=== PATIENT | male | born 1970 | race Caucasian/White ===

== ENCOUNTER 2016-08-27 18:38 | Observation (INO) ==
--- NOTE | 2016-08-27 19:59 | Emergency Department Note ---
Disposition Clinical Impression: Ankle fracture, Ankle sprain and strain, Glioblastoma, Ataxia Disposition: Admitted As Inpatient Condition: Fair Referrals: NO,PCP [Primary Care Provider] - Forms: ED Satisfaction Letter Lower Extremity Injury HPI - General Chief Complaint: ED Extremity Injury, Lower Stated Complaint: left ankle injury Time Seen by Provider: 08/27/16 19:32 Source: patient Mode of arrival: ambulatory Limitations: no limitations Nursing Notes Reviewed: Yes Vital Signs Reviewed: Yes - History of Present Illness HPI Narrative: Baljit Moreno 45 yo M presents with c/o b/l ankle pain/ Pt states that Right ankle pain started a few days ago, has been a constant throbbing pain that has caused him difficulty and weakness with walking since onset. He states this weakness with walking caused him to stumble and invert his left ankle earlier today which is now causing him a throbbing pain and weakness on the left side as well. Pt states that he is now unable to stand up and walk by himself and he has been requiring assistance from his family to get around. Pt denies fever, chills, N/V/D/C, CP or SOB, denies numbness/tingling, loss of sensation. Pt Subjective Complaint: ankle injury Injury location: Left ankle Onset (ago): day(s) Mechanism of Injury: inversion Context: walking Place: home Pain Severity: moderate Pain Scale: 6 Improves with: immobilization Worsens with: weight bearing, movement, palpation Associated symptoms: Reports: unable to bear weight, swelling, weakness - Related Data Home Medications Medication Instructions Recorded Confirmed Sulfamethoxazole/Trimeth DS 1 tab PO MOWEFR 04/24/16 08/27/16 [Bactrim Ds] Temozolomide [Temodar] 300 mg PO DAILY 04/24/16 08/12/16 Veliparib 20 mg PO DAILY 08/27/16 Previous Rx's Medication Instructions Recorded Prochlorperazine Maleate 10 mg PO Q6HR PRN #60 tablet 12/04/15 [Compazine] Acyclovir [Zovirax] 400 mg PO DAILY #30 tablet 12/26/15 Apixaban [Eliquis] 5 mg PO BID #60 tablet 05/08/16 Docusate [Colace] 200 mg PO HS #60 capsule 05/08/16 Mirtazapine [Remeron] 15 mg PO HS #30 tablet 05/08/16 Omeprazole 20 mg PO DAILY #30 tablet. 07/05/16 ClonazePAM [Klonopin] 1 mg PO BID #60 tablet 08/12/16 Allergies Allergy/AdvReac Type Severity Reaction Status Date / Time No Known Allergies Allergy Verified 08/12/16 11:29 Past Medical History - Past Medical History Medical history: Reports: cancer, DVT, GERD Surgical history: Reports: IVC Filter, other (Right parietal craniotomy for glioblastoma) Psychiatric history: Reports: anxiety, depression - Social History Smoking Status: Never smoker Smokeless Tobacco Status: No Alcohol use: Reports: none Drug use: Reports: none Physical Exam - General Limitations: no limitations General appearance: alert - Head Head exam: atraumatic, normocephalic, normal inspection - Eye Eye exam: Present: normal appearance, PERRL, EOMI - ENT ENT exam: normal exam, normal oropharynx, mucous membranes moist - Neck Neck exam: Present: normal inspection, full ROM, trachea midline - Chest Chest inspection: Present: normal inspection, symmetric chest wall rise - Respiratory Respiratory exam: Present: normal lung sounds bilaterally - Cardiovascular Cardiovascular exam: Present: regular rate, normal rhythm, normal heart sounds - Abdominal Exam Abdominal exam: Present: soft, Non-Tender. Absent: tenderness, distention, guarding, rebound, rigidity - Rectal Exam Rectal exam: Present: deferred - Extremities Exam Extremities exam: Present: tenderness (b/l lateral malleoli), joint swelling, other (dorsiflexion b/l 5/5; plantar flexion 4/5L 3/5R). Absent: calf tenderness - Expanded Lower Extremity Exam Ankle exam: Present: full ROM, tenderness, swelling, erythema (R>L), tenderness over talofibular lig (Left side). Absent: anterior draw sign Foot/toe exam: Present: full ROM, erythema Neurovascular/Tendon exam: Present: normal capillary refill. Absent: foot drop Gait: not tested/not observed - Back Exam Back exam: Present: normal inspection, full ROM. Absent: tenderness - Neurological Exam Neurological exam: Present: alert, oriented X3 - Psychiatric Psychiatric exam: Present: normal affect, normal mood - Skin Skin exam: Present: warm, dry, intact Course Vital Signs Temperature 0 F L 08/27/16 18:43 Pulse Rate 89 08/27/16 18:43 Respiratory Rate 16 08/27/16 18:43 Blood Pressure 125/84 08/27/16 18:43 O2 Sat by Pulse Oximetry 93 08/27/16 18:43 Temperature 0 F L 08/27/16 18:43 Pulse Rate 89 08/27/16 18:43 Respiratory Rate 16 08/27/16 18:43 Blood Pressure 125/84 08/27/16 18:43 O2 Sat by Pulse Oximetry 93 08/27/16 18:43 Oxygen Delivery Oxygen Delivery Room Air Extremity Injury, Lower - MDM Narrative Medical decision making narrative: The patient has bilateral ankle fractures and is completely unable to bear weight at this time. He has chronic gait disturbance and glioblastoma. Based on his family's inability to care for him at home, it may be appropriate to admit the patient hospital for PT/OT and or inpatient rehabilitation consult. The patient may require skilled nursing and the family and patient are comfortable with this plan. I have discussed the case with the hospitalist on-call who has accepted the patient to their care. - Differential Diagnosis Likely: sprain/strain, fracture, dislocation - Radiology Data Radiology results reviewed: Yes I reviewed the patient's radiology results.
--- NOTE | 2016-08-27 21:34 | Emergency Department Note ---
START Narrative - START START: The patient has a history of chronic gait abnormality secondary to his glioblastoma. He appears to have significant ankle strain or fracture of both ankles. The family reports the patient is unable to bear any weight at home. They do not feel like they can take care of him at the house. Based on the patient's chronic gait debility and what appear to be new associated ankle fractures bilaterally, I thought it would be appropriate to admit the patient to the hospital. I will consult with the hospitalist on-call, perhaps OT, PT and rehabilitation consultation be obtained for inpatient rehabilitation and/or retirement placement. The family and patient are agreeable to retirement placement or rehabilitation inpatient. I evaluated exam the patient with the resident and agree with her findings assessment and plan. I spent direct [id number] time with the patient. Impression: Gait instability Glioblastoma Bilateral ankle fractures Unable to bear weight's or walk secondary to acute ankle injuries
--- NOTE | 2016-08-27 23:51 | Internal Med History&Physical ---
<Cong Boothe - Last Filed: 08/28/16 01:09> Date of Encounter: 08/28/16 Time of Encounter: 23:20 Assessment and Plan (1) Ambulatory dysfunction Current visit: Yes Status: Acute - Patient reports unable to walk today. - Likely secondary to bilateral ankle pain in the setting of residual left lower extremity weakness. - Will have PT & OT to evaluate and treat. - Given patient's family doesn't feel safe and capable to take care of patient at this time, will consult social service and appreciate assistance regarding placement. (2) Ankle fracture Current visit: Yes Status: Acute - Ankle X-ray found possible nondisplaced distal right fibular fracture. - Given patient's residual weakness of left lower extremity and inability to ambulate at this time, will consult orthopedic surgery and appreciate recommendations. Qualifiers: Encounter type: initial encounter Fracture type: closed Laterality: right Qualified Code(s): S82.891A - Other fracture of right lower leg, initial encounter for closed fracture (3) Glioblastoma Current visit: Yes Status: Chronic - S/p right parietal craniotomy. - Currently on chemotherapy with last dose on 08/14/16. (4) History of pulmonary embolus (PE) Current visit: Yes Status: Chronic - Continue Eliquis. (5) Depression with anxiety Current visit: No Status: Chronic - Continue Remeron. Internal Medicine - H&P: HPI Chief complaint: Inability to ambulate Admitted From: Emergency Dept Plans for Post Hospital Care: Home History of present illness: Mr. Chávez is a 45 year old male with PMH of giloblastoma s/p right parietal craniotomy with residual left-sided weakness, on chemotherapy with last one on and history of PE, currently on Eliquis. Patient presented with complaint of inability to walk with ankle pain and weakness. Patient is a poor historian. Patient reports having right lateral ankle when he woke up on 08/26 and denies any known recent trauma or injury. Patient had his left ankle inverted accidentally today and reports unable to walk after. Patient states the left ankle weakness is about the same as before. Patient denies numbness/ tingling or other new focal weakness. Patient reports no significant ankle pain at this time. Per patient's family, they don't feel safe and capable to take care of patient at home given he cannot ambulate at this time. Past Med Surg Social Fam HX - Past Medical History Medical history: cancer (Giloblastoma), DVT, GERD Psychiatric history: anxiety, depression - Past Surgical History Surgical History: IVC Filter, other (Right parietal craniotomy) - Social History Smoking Status: Never smoker Smokeless Tobacco Status: No Alcohol use: none Drug use: none - Family History Mother History Unknown: Yes Adopted: [place]: Dara Yeh Age: 70 Family Member Ethnicity: Non- Living Status: Still Living Hx Family Cardiac Disorders: Yes (rapid heart rate) Hx Family Respiratory Disorders: No Hx Family Cancer: No Hx Family GI Disorders: No Hx Family Genitourinary Disorders: No Hx Family Endocrine Disorder: No Hx Family Musculoskeletal Disorders: No Hx Family Neuromuscular Disorders: No Hx Family Neurologic Disorders: No Hx Family HEENT Disorders: No Hx Family Autoimmune Disorders: No Hx Family Reproductive Disorders: No Hx Family Psychosocial Disorders: No Hx Family Medical Disorders: No Father Hx Family Neurologic Disorders: Yes (Stroke) Internal Medicine - H&P: Meds Prochlorperazine Maleate [Compazine] 10 mg PO Q6HR PRN #60 tablet 12/04/15 [Rx] Acyclovir [Zovirax] 400 mg PO DAILY #30 tablet 12/26/15 [Rx] Sulfamethoxazole/Trimeth DS [Bactrim Ds] 1 tab PO MOWEFR 04/24/16 [History] Temozolomide [Temodar] 300 mg PO DAILY 04/24/16 [History] Apixaban [Eliquis] 5 mg PO BID #60 tablet 05/08/16 [Rx] Docusate [Colace] 200 mg PO HS #60 capsule 05/08/16 [Rx] Mirtazapine [Remeron] 15 mg PO HS #30 tablet 05/08/16 [Rx] Omeprazole 20 mg PO DAILY #30 tablet. 07/05/16 [Rx] ClonazePAM [Klonopin] 1 mg PO BID #60 tablet 08/12/16 [Rx] Veliparib 20 mg PO DAILY 08/27/16 [History] Allergies No Known Allergies Allergy (Verified 08/12/16 11:29) All Systems PM: A 10-system review of systems was performed and is negative for pertinent findings except as documented above in the HPI. - Constitutional Constitutional: no anorexia, no fever(s), no weight loss - EENT Eyes: no change in vision Ears: no decreased hearing Nose, mouth and throat: no dysphagia, no odynophagia - Cardiovascular Cardiovascular ROS IM: no chest pain, no lightheadedness, no syncope - Respiratory Respiratory: no cough, no dyspnea, no hemoptysis - Gastrointestinal Gastrointestinal: no abdominal pain, no hematochezia, no melena, no nausea, no vomiting - Genitourinary Genitourinary ROS male: no difficulty urinating, no dysuria, no hematuria - Musculoskeletal Musculoskeletal ROS IM: arthralgias (Bilateral ankle pain), no myalgias - Integumentary Integumentary IM: no pruritus, no rash - Neurological Neurological ROS: no focal weakness, no numbness, no tingling - Hematologic/Lymphatic Hematologic/Lymphatic: no easy bleeding, no easy bruising - Constitutional Vitals: Temp Pulse Resp BP Pulse Ox 98.3 F 94 17 139/99 96 08/27/16 22:42 08/27/16 22:42 08/27/16 22:42 08/27/16 22:42 08/27/16 22:42 General appearance: Present: cooperative, A&O X 3, no acute distress - Head Head exam: Present: atraumatic, normocephalic - Eye Eye exam: Present: PERRL, conjuntiva pink, sclera anicteric - Neck Neck exam general surgery: Present: supple, trachea midline. Absent: lymphadenopathy - Respiratory Respiratory exam: Present: CTAB. Absent: accessory muscle use, rales, rhonchi, wheezes - Cardiovascular Cardiovascular exam: Present: RRR, +S1, +S2. Absent: diastolic murmur, gallop, rubs, systolic murmur - GI/Abdominal GI/Abdominal exam: Present: normal bowel sounds, soft, no peritoneal signs. Absent: distended, tenderness - Extremities Exam Extremities exam: Present: warm, radial pulses palpable and symetrical. Absent : calf tenderness, cyanotic Additional comments: Tenderness to palpation and some swelling at lateral malleolus of right ankle noted. - Neurological Exam Neurological exam: Present: CN II-XII intact, oriented X3. Absent: pronater drift, facial droop, speech deficit Additional comments: Left upper and lower extremity weakness, per patient, this is his baseline. - Skin Skin exam: Present: dry, intact <David,Lionel Herman - Last Filed: 08/28/16 05:56> Date of Encounter: 08/27/16 Internal Medicine - H&P: HPI History of present illness: Mr. Chávez is a 45 year old male admitted to the [facility] emergency department when he presented with complaints of bilateral ankle pain. The patient's history is significant for glioblastoma status post right parietal craniotomy with residual left hemiparesis. Patient acknowledges difficulty with ambulation and subsequently stumbled and inverted his ankle the morning of presentation. Due to pain and weakness incurred he was unable to stand and walk by himself and required assistance from family to mobilize. Upon presenting to the emergency department studies revealed evidence for bilateral ankle strain injuries with associated soft tissue swelling. Also noted was a possible nondisplaced distal right fibular/lateral malleolar fracture. Mild widening of the lateral ankle mortise was demonstrated indicative of ligamentous injury. It was suggested at presentation that patient 's current debility exceeds the ability of family members to assist him and care for him in the home setting. The patient was visited and interviewed and examined. I examined this patient and my medical decision-making was reviewed with the Resident Physician, Dr. Cong Boothe. For this encounter, I have reviewed the documentation, treatment plan, and medical decision making. I agree with the documented findings, disposition and treatment plan as described except to the extent set forth below. Given the patient's presenting concerns, past medical history, clinical findings and symptoms, he is admitted at this time to undergo further evaluation and disposition. All Systems PM: A 10-system review of systems was performed and is negative for pertinent findings except as documented above in the HPI. - Constitutional Vitals: Temp Pulse Resp BP Pulse Ox 98.4 F 84 16 126/85 94 08/28/16 04:59 08/28/16 04:59 08/28/16 04:59 08/28/16 04:59 08/28/16 04:59 Vital Signs Temp Pulse Resp BP Pulse Ox 08/28/16 04:59 98.4 F 84 16 126/85 94 08/27/16 22:42 98.3 F 94 17 139/99 96 08/27/16 22:16 16 136/107 08/27/16 18:43 0 F L 89 16 125/84 93 Intake and Output 08/27/16 08/27/16 08/28/16 15:59 23:59 07:59 Output Total 300 / 300 Balance -300 / -300 Output: Urine 300 / 300 Other: Weight 90.718 kg Internal Med - H&P Results - Labs CBC & Chem 7: 08/28/16 03:24 08/28/16 03:24 Labs: Short CBC 08/28/16 Range/Units 03:24 WBC 4.7 (4.3-11.1) K/mcL Hgb 13.9 (12.9-16.9) g/dL Hct 42.6 (37.5-50.1) % Plt Count 169 (140-400) K/mcL Neutrophils # 2.9 (1.6-8.9) K/mcL BMP 08/28/16 03:24 Sodium 143 Potassium 3.7 Chloride 108 Carbon Dioxide 22 BUN 11 Creatinine 1.45 H Glucose 86 Calcium 9.6 Abnormal lab results RBC 4.14 M/mcL (4.19-5.50) L 08/28/16 03:24 MCV 102.9 fL (83.0-100.0) H 08/28/16 03:24 MCH 33.6 pg (28.0-33.3) H 08/28/16 03:24 MPV 8.9 fL (9.4-12.4) L 08/28/16 03:24 Creatinine 1.45 mg/dL (0.72-1.25) H 08/28/16 03:24 Est GFR (Non-Af Amer) 52 (> 60) L 08/28/16 03:24 Laboratory Last Values WBC 4.7 K/mcL (4.3-11.1) 08/28/16 03:24 RBC 4.14 M/mcL (4.19-5.50) L 08/28/16 03:24 Hgb 13.9 g/dL (12.9-16.9) 08/28/16 03:24 Hct 42.6 % (37.5-50.1) 08/28/16 03:24 MCV 102.9 fL (83.0-100.0) H 08/28/16 03:24 MCH 33.6 pg (28.0-33.3) H 08/28/16 03:24 MCHC 32.6 g/dL (31.6-35.5) 08/28/16 03:24 RDW 12.3 % (11.5-14.5) 08/28/16 03:24 Plt Count 169 K/mcL (140-400) 08/28/16 03:24 MPV 8.9 fL (9.4-12.4) L 08/28/16 03:24 Immature Gran % 0.9 % (0-4) 08/28/16 03:24 Seg Neutrophils % 61.9 % 08/28/16 03:24 Lymphocytes % 16.1 % 08/28/16 03:24 Monocytes % 16.8 % 08/28/16 03:24 Eosinophils % 3.4 % 08/28/16 03:24 Basophils % 0.9 % 08/28/16 03:24 Neutrophils # 2.9 K/mcL (1.6-8.9) 08/28/16 03:24 Lymphocytes # 0.8 K/mcL (0.6-4.6) 08/28/16 03:24 Monocytes # 0.8 K/mcL (0.0-1.3) 08/28/16 03:24 Eosinophils # 0.2 K/mcL (0.0-0.6) 08/28/16 03:24 Basophils # 0.0 K/mcL (0.0-0.2) 08/28/16 03:24 Sodium 143 mEq/L (136-145) 08/28/16 03:24 Potassium 3.7 mEq/L (3.5-4.5) 08/28/16 03:24 Chloride 108 mEq/L (98-109) 08/28/16 03:24 Carbon Dioxide 22 mEq/L (19-29) 08/28/16 03:24 BUN 11 mg/dL (8-26) 08/28/16 03:24 Creatinine 1.45 mg/dL (0.72-1.25) H 08/28/16 03:24 Est GFR ( Amer) > 60 (> 60) 08/28/16 03:24 Est GFR (Non-Af Amer) 52 (> 60) L 08/28/16 03:24 BUN/Creatinine Ratio 8 (6-26) 08/28/16 03:24 Glucose 86 mg/dL (70-99) 08/28/16 03:24 Calculated Osmolality 295 (280-300) 08/28/16 03:24 Calcium 9.6 mg/dL (8.6-10.8) 08/28/16 03:24 - Impressions Ankle X-Ray 08/27/16 19:49 IMPRESSION: Suspect subtle fracture of the lateral malleolus, distally with overlying soft tissue edema. Mild widening of the lateral ankle mortise could also indicate ligamentous injury. Irregularity of the medial talar dome. While this could represent Focal osteochondritis, current minimal impaction fracture should be considered. Follow-up is recommended. D/ / Arie Kaur MD / Arie Kaur MD Interpreting Provider: Arie Kaur MD - Attending Attestation My signature below is to certify that this patient is under my care and that I, or the Resident Physician working with me, has had a [id number] encounter with this patient.
[2016-08-27] MEDS ORDERED: Naloxone 0.4 MG/ML INJ IVP PRN (23:59)
[2016-08-28 03:46] LABS: Basophils % 0.9 %; Eosinophils # 0.2 K/mcL (0.0-0.6); Eosinophils % 3.4 %; Hematocrit 42.6 % (37.5-50.1); Hemoglobin 13.9 g/dL (12.9-16.9); Immature Granulocytes % 0.9 % (0-4); Lymphocytes # 0.8 K/mcL (0.6-4.6); Lymphocytes % 16.1 %; Mean Corpuscular HGB Conc 32.6 g/dL (31.6-35.5); Mean Corpuscular Hemoglobin 33.6 pg (28.0-33.3); Mean Corpuscular Volume 102.9 fL (83.0-100.0); Mean Platelet Volume 8.9 fL (9.4-12.4); Monocytes # 0.8 K/mcL (0.0-1.3); Monocytes % 16.8 %; Neutrophils # 2.9 K/mcL (1.6-8.9); Platelet Count 169 K/mcL (140-400); Red Blood Count 4.14 M/mcL (4.19-5.50); Red Cell Distribution Width 12.3 % (11.5-14.5); Segmented Neutrophils % 61.9 %
[2016-08-28 03:56] LABS: BUN/Creatinine Ratio 8 (6-26); Blood Urea Nitrogen 11 mg/dL (8-26); Calcium 9.6 mg/dL (8.6-10.8); Carbon Dioxide 22 mEq/L (19-29); Chloride 108 mEq/L (98-109); Glucose 86 mg/dL (70-99); Osmolality,Calculated 295 (280-300); Potassium 3.7 mEq/L (3.5-4.5); Sodium 143 mEq/L (136-145); eGFR For African Americans > 60 (> 60); eGFR For Non-African Americans 52 (> 60)
[2016-08-28] MEDS: Acetaminophen 325 MG TABLET PO PRN ×2 (04:53→13:47)
[2016-08-28] MEDS ORDERED: Ondansetron 4 MG/2 ML VIAL IVP PRN (05:33)
[2016-08-28] MEDS ORDERED: Naloxone 0.4 MG/ML INJ IVP PRN (05:33)
[2016-08-28] MEDS: Ringers Solution, Lactated 1,000 ML IVC SCH (06:04)
[2016-08-28 06:15] LABS: Alanine Aminotransferase 10 Units/L (0-55); Albumin 3.6 g/dL (3.5-5.0); Albumin/Globulin Ratio 1.1 (1.1-2.2); Alkaline Phosphatase 44 Units/L (38-126); Aspartate Amino Transferase 15 Units/L (5-34); Bilirubin,Direct 0.2 mg/dL (0.0-0.5); Bilirubin,Indirect 0.7 mg/dL (0.0-1.2); Bilirubin,Total 0.9 mg/dL (0.2-1.2); C-Reactive Protein 145 mg/L (Less than 5); Globulin 3.4 g/dL (2.4-3.5); Magnesium 2.1 mg/dL (1.6-2.6); Phosphorous 4.7 mg/dL (2.3-4.7)
[2016-08-28 06:24] LABS: Hemoglobin A1C 4.8 %
[2016-08-28 06:24] LABS: VBG HCO3 27.2 mEq/L (21-27); VBG Ionized Calcium 1.14 mmol/L (1.15-1.35); VBG PH 7.44 pH Units (7.32-7.42)
[2016-08-28 06:26] LABS: INR 1.6; Prothrombin Time 17.5 Seconds (9.4-12.1)
[2016-08-28 06:29] LABS: Activated Partial Thrombo Time 39.5 Seconds (26.0-36.0)
[2016-08-28] MEDS: clonazePAM 1 MG TABLET PO SCH ×2 (09:04→20:19)
[2016-08-28] MEDS: Sulfamethoxazole/Trimeth DS 1 EACH TABLET PO SCH (09:04)
[2016-08-28] MEDS: Acyclovir 200 MG CAPSULE PO SCH (09:04)
[2016-08-28] MEDS: APIXABAN 5 MG TABLET PO SCH ×2 (09:04→20:19)
[2016-08-28 10:06] LABS: Bilirubin,Urine Negative (Negative); Blood,Urine Negative (Negative); Clarity,Urine Clear (Clear); Color,Urine Yellow (Yellow); Glucose,Urine (UA) Normal (Normal); Ketones,Urine Negative (Negative); Leukocyte Esterase,Urine Negative (Negative); Nitrite,Urine Negative (Negative); Protein,Urine Negative (Neg-Trace); Specific Gravity,Urine 1.018 (1.010-1.025); Urobilinogen,Urine Normal (Normal)
--- NOTE | 2016-08-28 13:56 | Internal Med Progress Note ---
Date of Encounter: 08/28/16 Time of Encounter: 10:20 - Assessment and plan (1) Ankle fracture Current Visit: Yes Status: Acute Assessment and plan: Right lateral malleolus subtle fracture. Also left distal fibula fracture. Supportive care. Nonsurgical. Orthopedics has been consulted. We will follow recommendations. Qualifiers: Encounter type: initial encounter Fracture type: closed Laterality: right Qualified Code(s): S82.891A - Other fracture of right lower leg, initial encounter for closed fracture (2) Ambulatory dysfunction Current Visit: Yes Status: Acute Assessment and plan: Physical therapy evaluated patient. Recommended SNF placement. workers compensation coordinator has been consulted to make arrangements for this. (3) Ankle sprain and strain Current Visit: Yes Status: Acute (4) Depression with anxiety Current Visit: No Status: Chronic Assessment and plan: On Remeron (5) Glioblastoma Current Visit: No Status: Chronic Assessment and plan: Follow up outpatient with oncology (6) History of pulmonary embolus (PE) Current Visit: Yes Status: Chronic Assessment and plan: Continue Eliquis - Subjective Interval history: Patient lying in bed. Appears comfortable. Denies any pain as long as he does not move. Tolerating diet well. No new complaints at this time. - Constitutional Vitals: Temp Pulse Resp BP Pulse Ox 98.7 F 92 16 137/85 94 08/28/16 10:16 08/28/16 13:14 08/28/16 13:14 08/28/16 13:14 08/28/16 13:14 General appearance: Present: cooperative, A&O X 3, no acute distress, answers questions appropriately - Neck Neck exam general surgery: Present: supple, trachea midline. Absent: lymphadenopathy - Respiratory Respiratory exam: Present: CTAB. Absent: accessory muscle use, rales, rhonchi, wheezes - Cardiovascular Cardiovascular exam: Present: RRR, +S1, +S2. Absent: diastolic murmur, gallop, rubs, systolic murmur - GI/Abdominal GI/Abdominal exam: Present: normal bowel sounds, soft, no peritoneal signs. Absent: distended, tenderness - Extremities Exam Extremities exam: Present: warm, radial pulses palpable and symetrical. Absent : calf tenderness, cyanotic, pedal edema Additional comments: Tenderness and swelling palpable over the right lateral malleolus - Neurological Exam Neurological exam: Present: oriented X3. Absent: facial droop, speech deficit Additional comments: Decreased strength in the left upper and lower extremity. - Skin Skin exam: Present: dry, intact Internal Medicine: Result - Labs CBC & Chem 7: 08/28/16 03:24 08/28/16 03:24 Labs: Short CBC 08/28/16 Range/Units 03:24 WBC 4.7 (4.3-11.1) K/mcL Hgb 13.9 (12.9-16.9) g/dL Hct 42.6 (37.5-50.1) % Plt Count 169 (140-400) K/mcL Neutrophils # 2.9 (1.6-8.9) K/mcL BMP 08/28/16 03:24 Sodium 143 Potassium 3.7 Chloride 108 Carbon Dioxide 22 BUN 11 Creatinine 1.45 H Glucose 86 Calcium 9.6 Liver Function 08/28/16 Range/Units 03:24 Total Bilirubin 0.9 (0.2-1.2) mg/dL Direct Bilirubin 0.2 (0.0-0.5) mg/dL AST 15 (5-34) Units/L ALT 10 (0-55) Units/L Alkaline Phosphatase 44 (38-126) Units/L Albumin 3.6 (3.5-5.0) g/dL Urine 08/28/16 Range/Units 09:31 Urine Color Yellow (Yellow) Urine Clarity Clear (Clear) Urine pH 5.0 (5.0-8.0) pH Units Ur Specific Hines 1.018 (1.010-1.025) Urine Protein Negative (Neg-Trace) mg/dL Urine Glucose (UA) Normal (Normal) mg/dL - ABG Interpretation ABG results: PT/INR, D-dimer PT 17.5 Seconds (9.4-12.1) H 08/28/16 06:06 Consult Discharge Plan - Plan Referrals: NO,PCP [Primary Care Provider] - - Attending Attestation This document has been at least partially created by [employer] recognition technology by Dr. Abdalla. Errors in grammar, wording or other phrases may exist. If errors are found after the documentation is signed, they will be addressed individually in the addendum section of this document when appropriate.
--- NOTE | 2016-08-28 15:55 | Orthopedic Consult Note ---
Date of Encounter: 08/28/16 Time of Encounter: 15:53 Assessment and Plan (1) Ankle sprain and strain Current Visit: Yes Status: Acute Left ankle - No obvious fracture noted on XRAY. Soft tissue swelling laterally. Will fit with AFO brace for support. Start PT/OT. WBAT. ICE and elevate (2) Ankle fracture Current Visit: Yes Status: Acute Right Ankle: XRAY reveals possible nondisplaced lateral distal fibular fracture. In coordination with patients symptoms, will treat conservatively with AFO brace for support. WBAT. ICE and elevate. PT/OT. F/up with orthopedics in 2 weeks. Qualifiers: Encounter type: initial encounter Fracture type: closed Laterality: right Qualified Code(s): S82.891A - Other fracture of right lower leg, initial encounter for closed fracture (3) Glioblastoma Current Visit: No Status: Chronic (4) History of pulmonary embolus (PE) Current Visit: Yes Status: Chronic (5) Ambulatory dysfunction Current Visit: Yes Status: Acute History of Present Illness Chief complaint: New onset ankle pain HPI: Mr. Chávez is a 45 year old male Past Med Surg Social Fam HX - Past Medical History Medical history: cancer (Giloblastoma), DVT, GERD Psychiatric history: anxiety, depression - Past Surgical History Surgical History: IVC Filter, other (Right parietal craniotomy) - Social History Smoking Status: Never smoker Smokeless Tobacco Status: No Alcohol use: none Drug use: none - Family History Mother History Unknown: Yes Adopted: [place]: Dara Yeh Age: 70 Family Member Ethnicity: Non- Living Status: Still Living Hx Family Cardiac Disorders: Yes (rapid heart rate) Hx Family Respiratory Disorders: No Hx Family Cancer: No Hx Family GI Disorders: No Hx Family Genitourinary Disorders: No Hx Family Endocrine Disorder: No Hx Family Musculoskeletal Disorders: No Hx Family Neuromuscular Disorders: No Hx Family Neurologic Disorders: No Hx Family HEENT Disorders: No Hx Family Autoimmune Disorders: No Hx Family Reproductive Disorders: No Hx Family Psychosocial Disorders: No Hx Family Medical Disorders: No Father Hx Family Neurologic Disorders: Yes (Stroke) Medications and Allergies Prochlorperazine Maleate [Compazine] 10 mg PO Q6HR PRN #60 tablet 12/04/15 [Rx] Acyclovir [Zovirax] 400 mg PO DAILY #30 tablet 12/26/15 [Rx] Sulfamethoxazole/Trimeth DS [Bactrim Ds] 1 tab PO MOWEFR 04/24/16 [History] Temozolomide [Temodar] 300 mg PO DAILY 04/24/16 [History] Apixaban [Eliquis] 5 mg PO BID #60 tablet 05/08/16 [Rx] Docusate [Colace] 200 mg PO HS #60 capsule 05/08/16 [Rx] Mirtazapine [Remeron] 15 mg PO HS #30 tablet 05/08/16 [Rx] Omeprazole 20 mg PO DAILY #30 tablet. 07/05/16 [Rx] ClonazePAM [Klonopin] 1 mg PO BID #60 tablet 08/12/16 [Rx] Veliparib 20 mg PO DAILY 08/27/16 [History] Allergies No Known Allergies Allergy (Verified 08/12/16 11:29) All Systems Reviewed: A 10-system review of systems was performed and is negative for pertinent findings except as documented above in the HPI. Physical Exam - Constitutional Vitals: Temp Pulse Resp BP Pulse Ox 98.7 F 92 16 137/85 94 08/28/16 10:16 08/28/16 13:14 08/28/16 13:14 08/28/16 13:14 08/28/16 13:14 Results - Labs Result Diagrams: 08/28/16 03:24 08/28/16 03:24 Labs: Abnormal lab results RBC 4.14 M/mcL (4.19-5.50) L 08/28/16 03:24 MCV 102.9 fL (83.0-100.0) H 08/28/16 03:24 MCH 33.6 pg (28.0-33.3) H 08/28/16 03:24 MPV 8.9 fL (9.4-12.4) L 08/28/16 03:24 PT 17.5 Seconds (9.4-12.1) H 08/28/16 06:06 APTT 39.5 Seconds (26.0-36.0) H 08/28/16 06:06 VBG pH 7.44 pH Units (7.32-7.42) H 08/28/16 06:06 VBG pCO2 40 mmHg (41-51) L 08/28/16 06:06 VBG pO2 141 mmHg (25-40) H 08/28/16 06:06 VBG HCO3 27.2 mEq/L (21-27) H 08/28/16 06:06 VBG Ionized Calcium 1.14 mmol/L (1.15-1.35) L 08/28/16 06:06 Creatinine 1.45 mg/dL (0.72-1.25) H 08/28/16 03:24 Est GFR (Non-Af Amer) 52 (> 60) L 08/28/16 03:24 C-Reactive Protein 145 mg/L (Less than 5) H 08/28/16 03:24 H & H 08/28/16 Range/Units 03:24 Hgb 13.9 (12.9-16.9) g/dL Hct 42.6 (37.5-50.1) % All other labs normal. - Diagnostic results Ankle/Foot x-ray: report reviewed, image reviewed Consult Discharge Plan - Plan Referrals: NO,PCP [Primary Care Provider] -
--- NOTE | 2016-08-28 16:42 | Event Note ---
Date of Encounter: 08/28/16 Time of Encounter: 16:40 Patient was seen and evaluated by Sessions today: CAM walker boot for Right ankle, ASO for Left ankle. Assured braces would be placed tonight. WBAT
--- NOTE | 2016-08-28 17:41 | Podiatry Consult Note ---
Date of Encounter: 08/28/16 Time of Encounter: 12:39 Assessment and Plan (1) Ankle fracture Current visit: Yes Status: Acute Minimize weightbearing and apply cam boot to the right ankle. Patient is OK to ambulate as tolerated by pain. Patient needs to follow up in clinic 2-3 weeks after discharge. Qualifiers: Encounter type: initial encounter Fracture type: closed Laterality: right Qualified Code(s): S82.891A - Other fracture of right lower leg, initial encounter for closed fracture History of Present Illness Chief complaint: ankle fracture HPI: Mr. Chávez is a 45 year old male who relates pain in his ankles. Patient relates that the pain is equal in both ankles. Patient denies any other pedal complaints. Past Med Surg Social Fam HX - Past Medical History Medical history: cancer (Giloblastoma), DVT, GERD Psychiatric history: anxiety, depression - Past Surgical History Surgical History: IVC Filter, other (Right parietal craniotomy) - Social History Smoking Status: Never smoker Smokeless Tobacco Status: No Alcohol use: none Drug use: none - Family History Mother History Unknown: Yes Adopted: [place]: Dara Yeh Age: 70 Family Member Ethnicity: Non- Living Status: Still Living Hx Family Cardiac Disorders: Yes (rapid heart rate) Hx Family Respiratory Disorders: No Hx Family Cancer: No Hx Family GI Disorders: No Hx Family Genitourinary Disorders: No Hx Family Endocrine Disorder: No Hx Family Musculoskeletal Disorders: No Hx Family Neuromuscular Disorders: No Hx Family Neurologic Disorders: No Hx Family HEENT Disorders: No Hx Family Autoimmune Disorders: No Hx Family Reproductive Disorders: No Hx Family Psychosocial Disorders: No Hx Family Medical Disorders: No Father Hx Family Neurologic Disorders: Yes (Stroke) Medications and Allergies Prochlorperazine Maleate [Compazine] 10 mg PO Q6HR PRN #60 tablet 12/04/15 [Rx] Acyclovir [Zovirax] 400 mg PO DAILY #30 tablet 12/26/15 [Rx] Sulfamethoxazole/Trimeth DS [Bactrim Ds] 1 tab PO MOWEFR 04/24/16 [History] Temozolomide [Temodar] 300 mg PO DAILY 04/24/16 [History] Apixaban [Eliquis] 5 mg PO BID #60 tablet 05/08/16 [Rx] Docusate [Colace] 200 mg PO HS #60 capsule 05/08/16 [Rx] Mirtazapine [Remeron] 15 mg PO HS #30 tablet 05/08/16 [Rx] Omeprazole 20 mg PO DAILY #30 tablet. 07/05/16 [Rx] ClonazePAM [Klonopin] 1 mg PO BID #60 tablet 08/12/16 [Rx] Veliparib 20 mg PO DAILY 08/27/16 [History] Allergies No Known Allergies Allergy (Verified 08/12/16 11:29) All Systems Reviewed: A 10-system review of systems was performed and is negative for pertinent findings except as documented above in the HPI. Physical Exam - Constitutional Vitals: Temp Pulse Resp BP Pulse Ox 98.5 F 99 16 129/87 95 08/28/16 14:45 08/28/16 14:45 08/28/16 14:45 08/28/16 14:45 08/28/16 14:45 Exam: pedal pulses palpable and CFT intact to the digits. Radiographs demonstrate a small possible avulsion fracture and possible syndesmotic injury. Pain with ROM and palpation to bilateral ankles. Sensation grossly intact. mild edema noted. Results - Labs Result Diagrams: 08/28/16 03:24 08/28/16 03:24 Labs: Abnormal lab results RBC 4.14 M/mcL (4.19-5.50) L 08/28/16 03:24 MCV 102.9 fL (83.0-100.0) H 08/28/16 03:24 MCH 33.6 pg (28.0-33.3) H 08/28/16 03:24 MPV 8.9 fL (9.4-12.4) L 08/28/16 03:24 PT 17.5 Seconds (9.4-12.1) H 08/28/16 06:06 APTT 39.5 Seconds (26.0-36.0) H 08/28/16 06:06 VBG pH 7.44 pH Units (7.32-7.42) H 08/28/16 06:06 VBG pCO2 40 mmHg (41-51) L 08/28/16 06:06 VBG pO2 141 mmHg (25-40) H 08/28/16 06:06 VBG HCO3 27.2 mEq/L (21-27) H 08/28/16 06:06 VBG Ionized Calcium 1.14 mmol/L (1.15-1.35) L 08/28/16 06:06 Creatinine 1.45 mg/dL (0.72-1.25) H 08/28/16 03:24 Est GFR (Non-Af Amer) 52 (> 60) L 08/28/16 03:24 C-Reactive Protein 145 mg/L (Less than 5) H 08/28/16 03:24 H & H 08/28/16 Range/Units 03:24 Hgb 13.9 (12.9-16.9) g/dL Hct 42.6 (37.5-50.1) % All other labs normal. Consult Discharge Plan - Plan Referrals: NO,PCP [Primary Care Provider] -
[2016-08-28] MEDS: Mirtazapine 15 MG TABLET PO SCH (20:19)
[2016-08-29] MEDS: Ringers Solution, Lactated 1,000 ML IVC SCH (00:01)
[2016-08-29] MEDS: Acetaminophen 325 MG TABLET PO PRN ×3 (00:27→19:25)
--- NOTE | 2016-08-29 09:17 | Internal Med Progress Note ---
Date of Encounter: 08/29/16 Time of Encounter: 08:15 - Assessment and plan (1) Ankle fracture Current Visit: Yes Status: Acute Assessment and plan: Right ankle fracture. Podiatry following. Patient in boot. Awaiting placement to skilled rehabilitation for therapy. Qualifiers: Encounter type: initial encounter Fracture type: closed Laterality: right Qualified Code(s): S82.891A - Other fracture of right lower leg, initial encounter for closed fracture (2) Ambulatory dysfunction Current Visit: Yes Status: Acute (3) Ankle sprain and strain Current Visit: Yes Status: Acute Assessment and plan: Right-sided. Supportive care. Physical therapy. (4) Depression with anxiety Current Visit: No Status: Chronic Assessment and plan: Continue Klonopin and Remeron (5) Glioblastoma Current Visit: No Status: Chronic (6) History of pulmonary embolus (PE) Current Visit: Yes Status: Chronic Assessment and plan: On Eliquis - Subjective Interval history: Patient complaining of disorientation overnight and it appears that he may have scratched his left upper thigh resulting in small laceration wound that was bleeding. Pain at his ankle on the left side is worse today. Denies any fever or chills or night sweats. Pain control with narcotic medications that the patient is receiving. - Constitutional Vitals: Temp Pulse Resp BP Pulse Ox 98.9 F 89 16 119/83 92 08/29/16 07:39 08/29/16 07:39 08/29/16 07:39 08/29/16 07:39 08/29/16 07:39 General appearance: Present: cooperative, A&O X 3, no acute distress, answers questions appropriately - Respiratory Respiratory exam: Present: CTAB. Absent: accessory muscle use, rales, rhonchi, wheezes - Cardiovascular Cardiovascular exam: Present: RRR, +S1, +S2. Absent: diastolic murmur, gallop, rubs, systolic murmur - GI/Abdominal GI/Abdominal exam: Present: normal bowel sounds, soft, no peritoneal signs. Absent: distended, tenderness - Extremities Exam Extremities exam: Present: warm, radial pulses palpable and symetrical. Absent : calf tenderness, cyanotic, pedal edema Additional comments: Right foot in Boot. Normal range of motion but with pain. small healing laceration noted on the medial side of the left thigh that appears fresh with recent bleeding. - Neurological Exam Neurological exam: Present: CN II-XII intact, oriented X3, no focal deficits. Absent: facial droop, speech deficit Internal Medicine: Result - Labs CBC & Chem 7: 08/28/16 03:24 08/28/16 03:24 Labs: Urine 08/28/16 Range/Units 09:31 Urine Color Yellow (Yellow) Urine Clarity Clear (Clear) Urine pH 5.0 (5.0-8.0) pH Units Ur Specific Thompson 1.018 (1.010-1.025) Urine Protein Negative (Neg-Trace) mg/dL Urine Glucose (UA) Normal (Normal) mg/dL - ABG Interpretation ABG results: PT/INR, D-dimer PT 17.5 Seconds (9.4-12.1) H 08/28/16 06:06 Consult Discharge Plan - Plan Referrals: NO,PCP [Primary Care Provider] - - Attending Attestation This document has been at least partially created by [employer] voice recognition technology by Dr. Abdalla. Errors in grammar, wording or other phrases may exist. If errors are found after the documentation is signed, they will be addressed individually in the addendum section of this document when appropriate.
[2016-08-29] MEDS: Acyclovir 200 MG CAPSULE PO SCH (09:29)
[2016-08-29] MEDS: clonazePAM 1 MG TABLET PO SCH ×2 (09:30→21:37)
[2016-08-29] MEDS: APIXABAN 5 MG TABLET PO SCH ×2 (09:30→21:37)
[2016-08-29] MEDS: *HR* OxyCODONE Immed Rel 5 MG TABLET PO PRN ×2 (15:00→21:36)
[2016-08-29] MEDS: Mirtazapine 15 MG TABLET PO SCH (21:37)
[2016-08-30] MEDS: Acetaminophen 325 MG TABLET PO PRN (03:32)
[2016-08-30] MEDS: Acyclovir 200 MG CAPSULE PO SCH (08:49)
[2016-08-30] MEDS: clonazePAM 1 MG TABLET PO SCH ×2 (08:50→20:25)
[2016-08-30] MEDS: Sulfamethoxazole/Trimeth DS 1 EACH TABLET PO SCH (08:50)
[2016-08-30] MEDS: APIXABAN 5 MG TABLET PO SCH ×2 (08:50→20:25)
[2016-08-30] MEDS: *HR* OxyCODONE Immed Rel 5 MG TABLET PO PRN ×2 (10:44→18:54)
[2016-08-30] MEDS: MOM Conc 10 ML UD.LIQ PO PRN (10:59)
--- NOTE | 2016-08-30 14:48 | Discharge Summary ---
Date of Encounter: 08/30/16 Time of Encounter: 09:15 - Discharge Diagnosis (1) Ankle fracture Priority: Primary Status: Acute Qualifiers: Encounter type: initial encounter Fracture type: closed Laterality: right Qualified Code(s): S82.891A - Other fracture of right lower leg, initial encounter for closed fracture (2) Ambulatory dysfunction Priority: Secondary Status: Acute (3) Ankle sprain and strain Priority: Secondary Status: Acute (4) Depression with anxiety Priority: Secondary Status: Chronic (5) Glioblastoma Priority: Secondary Status: Chronic (6) History of pulmonary embolus (PE) Priority: Secondary Status: Chronic - Discharge Medications Prescriptions: OxyCODONE Immed Rel [Roxicodone 5 MG] 5 mg PO Q6HR PRN #14 tablet PRN Reason: Moderate Pain ClonazePAM [Klonopin] 1 mg PO BID #14 tablet Mirtazapine [Remeron] 15 mg PO HS #14 tablet Home Medications: Prochlorperazine Maleate [Compazine] 10 mg PO Q6HR PRN #60 tablet 12/04/15 [Rx] Acyclovir [Zovirax] 400 mg PO DAILY #30 tablet 12/26/15 [Rx] Sulfamethoxazole/Trimeth DS [Bactrim Ds] 1 tab PO MOWEFR 04/24/16 [History] Temozolomide [Temodar] 300 mg PO DAILY 04/24/16 [History] Apixaban [Eliquis] 5 mg PO BID #60 tablet 05/08/16 [Rx] Docusate [Colace] 200 mg PO HS #60 capsule 05/08/16 [Rx] Omeprazole 20 mg PO DAILY #30 tablet. 07/05/16 [Rx] Veliparib 20 mg PO DAILY 08/27/16 [History] Acetaminophen [Tylenol] 650 mg PO Q6HR PRN #0 tablet 08/30/16 [Rx] ClonazePAM [Klonopin] 1 mg PO BID #14 tablet 08/30/16 [Rx] Mirtazapine [Remeron] 15 mg PO HS #14 tablet 08/30/16 [Rx] OxyCODONE Immed Rel [Roxicodone 5 MG] 5 mg PO Q6HR PRN #14 tablet 08/30/16 [Rx] Allergies/Adverse Reactions: Allergies No Known Allergies Allergy (Verified 08/12/16 11:29) Date of admission: 08/27/16 21:59 Primary care physician: PCP NO Consults: 08/27/16 23:42 Consult to Stamp Collector [CONS] Routine Reason for SW Consult: potential need for ECF or HHC 08/28/16 00:02 Consult to Occupational Therapy [CONS] Routine Comment: Evaluate, develop and implement POC Consult to Physical Therapy [CONS] Routine Comment: Evaluate, develop and implement POC 08/28/16 00:04 Consult to Orthopedic Surgery [CONS] Routine Consulting Provider: [facility] Reason for Consult: Nondisplaced distal right fibular fracture. Pt has residual left-sided weakness s/p right parietal craniotomy. Will call in AM. Call Completed: No Discharging clinician: Emmanuelle Abdalla Anticipated date of discharge: 09/02/16 - Patient Status Disposition: Transfer SNF Condition: Good Functional capacity at discharge: uses cane/walker Overall status at discharge: patient is progressing back to baseline - Discharge Instructions Follow Up With: NO,PCP [Primary Care Provider] - (In 1-2 weeks) Additional Instructions: Follow-up with podiatry in 2-3 weeks - Diet and Activity Activity: as per physical therapy Diet: advance to your usual diet Hospital course: Mr. Chávez is a 45 year old male with history of glioblastoma multiforme who was observed here following right lateral malleolus and possible distal fibular fracture after fall. He also had injury on his left foot. He was evaluated by podiatry and a boot was placed on his right foot to immobilize the joint. Physical therapy evaluated the patient and recommended placement to [facility] which is currently being arranged by the mental health social worker. Patient is clinically stable for discharge to [facility]. Patient is on anticoagulation with Eliquis. - Time Spent with Patient Total time spent providing and/or coordinating discharge services: Greater than 30 minutes (40 min) - Constitutional Vitals: Temp Pulse Resp BP Pulse Ox 98.1 F 98 18 118/81 93 08/30/16 10:55 08/30/16 10:55 08/30/16 10:55 08/30/16 10:55 08/30/16 10:55 General appearance: Present: cooperative, A&O X 3, no acute distress, answers questions appropriately - Cardiovascular Cardiovascular exam: Present: RRR, +S1, +S2. Absent: diastolic murmur, gallop, rubs, systolic murmur - GI/Abdominal GI/Abdominal exam: Present: normal bowel sounds, soft, no peritoneal signs. Absent: distended, tenderness - Extremities Exam Extremities exam: Present: warm, radial pulses palpable and symetrical. Absent : calf tenderness, cyanotic, pedal edema Additional comments: Right foot in Cam boot. Left foot in brace - Skin Skin exam: Present: dry, intact - Attending Attestation This document has been at least partially created by [employer] recognition technology by Dr. Abdalla. Errors in grammar, wording or other phrases may exist. If errors are found after the documentation is signed, they will be addressed individually in the addendum section of this document when appropriate.
--- NOTE | 2016-08-30 14:59 | Physician Discharge Referral ---
ExtendedCare Referral Info Institutional Level of Care: Skilled - Diagnosis (1) Ankle fracture Priority: Primary Status: Acute (2) Ambulatory dysfunction Priority: Secondary Status: Acute (3) Ankle sprain and strain Priority: Secondary Status: Acute (4) Depression with anxiety Priority: Secondary Status: Chronic (5) Glioblastoma Priority: Secondary Status: Chronic (6) History of pulmonary embolus (PE) Priority: Secondary Status: Chronic Prognosis: Fair Aware of Diagnosis: Patient Aware of Prognosis: Patient - Transfer Medications Prescriptions: OxyCODONE Immed Rel [Roxicodone 5 MG] 5 mg PO Q6HR PRN #14 tablet PRN Reason: Moderate Pain ClonazePAM [Klonopin] 1 mg PO BID #14 tablet Mirtazapine [Remeron] 15 mg PO HS #14 tablet Home Medications: Prochlorperazine Maleate [Compazine] 10 mg PO Q6HR PRN #60 tablet 12/04/15 [Rx] Acyclovir [Zovirax] 400 mg PO DAILY #30 tablet 12/26/15 [Rx] Sulfamethoxazole/Trimeth DS [Bactrim Ds] 1 tab PO MOWEFR 04/24/16 [History] Temozolomide [Temodar] 300 mg PO DAILY 04/24/16 [History] Apixaban [Eliquis] 5 mg PO BID #60 tablet 05/08/16 [Rx] Docusate [Colace] 200 mg PO HS #60 capsule 05/08/16 [Rx] Omeprazole 20 mg PO DAILY #30 tablet. 07/05/16 [Rx] Veliparib 20 mg PO DAILY 08/27/16 [History] Acetaminophen [Tylenol] 650 mg PO Q6HR PRN #0 tablet 08/30/16 [Rx] ClonazePAM [Klonopin] 1 mg PO BID #14 tablet 08/30/16 [Rx] Mirtazapine [Remeron] 15 mg PO HS #14 tablet 08/30/16 [Rx] OxyCODONE Immed Rel [Roxicodone 5 MG] 5 mg PO Q6HR PRN #14 tablet 08/30/16 [Rx] Allergies/Adverse Reactions: Allergies No Known Allergies Allergy (Verified 08/12/16 11:29) - Respiratory Orders Oxygen / L per min Smoking Cessation: Smoking cessation has been advised. For more information, call the [place] Tobacco Quit Line at 5-606-TNCM-NOW. - Advance Directives Code Status: Full Code - Mobility Orders Ambulate - Rehabiliation Orders Rehab Potential: Fair Rehab Orders: Evaluation for Physical Therapy, Evaluation for Occupational Therapy - Diet Orders Cardiac CERTIFICATION: I certify that the transfer of the above named patient to an Extended Care Facility is necessary for the continuing treatment of the diagnosis listed. The above information is true and accurate reflection of patient's current condition. Confidential - Redisclosure prohibited without a patient's written consent.
[2016-08-30] MEDS: Mirtazapine 15 MG TABLET PO SCH (20:25)
[2016-08-31] MEDS: Acyclovir 200 MG CAPSULE PO SCH (08:18)
[2016-08-31] MEDS: clonazePAM 1 MG TABLET PO SCH ×2 (08:18→20:36)
[2016-08-31] MEDS: APIXABAN 5 MG TABLET PO SCH ×2 (08:18→20:36)
[2016-08-31] MEDS: *HR* OxyCODONE Immed Rel 5 MG TABLET PO PRN (08:22)
--- NOTE | 2016-08-31 10:01 | Internal Med Progress Note ---
Date of Encounter: 08/31/16 Time of Encounter: 08:50 - Assessment and plan (1) Ankle fracture Current Visit: Yes Status: Acute Assessment and plan: Right ankle fracture. Being managed conservatively. Continue physical therapy. Awaiting placement to skilled rehabilitation. Low risk for complications. Qualifiers: Encounter type: initial encounter Fracture type: closed Laterality: right Qualified Code(s): S82.891A - Other fracture of right lower leg, initial encounter for closed fracture (2) Ambulatory dysfunction Current Visit: Yes Status: Acute (3) Ankle sprain and strain Current Visit: Yes Status: Acute (4) Depression with anxiety Current Visit: No Status: Chronic Assessment and plan: Continue Klonopin and Remeron (5) Glioblastoma Current Visit: No Status: Chronic (6) History of pulmonary embolus (PE) Current Visit: Yes Status: Chronic Assessment and plan: On Eliquis. (7) Constipation Current Visit: Yes Status: Acute Assessment and plan: We will add Dulcolax suppository. If this does not work, we will order an enema Qualifiers: Constipation type: slow transit constipation Qualified Code(s): K59.01 - Slow transit constipation - Subjective Interval history: Currently lying down. Complains of constipation. He did not respond to milk of magnesia or docusate that he was receiving. He feels nauseated as a result of his constipation. He has not eaten much this morning - Constitutional Vitals: Temp Pulse Resp BP Pulse Ox 98.1 F 99 18 114/80 93 08/31/16 06:23 08/31/16 06:23 08/31/16 06:23 08/31/16 06:23 08/31/16 06:23 General appearance: Present: cooperative, A&O X 3, no acute distress, answers questions appropriately - Respiratory Respiratory exam: Present: CTAB. Absent: accessory muscle use, rales, rhonchi, wheezes - Cardiovascular Cardiovascular exam: Present: RRR, +S1, +S2. Absent: diastolic murmur, gallop, rubs, systolic murmur - GI/Abdominal GI/Abdominal exam: Present: normal bowel sounds, soft, no peritoneal signs. Absent: distended, tenderness - Extremities Exam Extremities exam: Present: warm, radial pulses palpable and symetrical. Absent : calf tenderness, cyanotic, pedal edema Additional comments: Right foot in cam boot and left foot in brace - Neurological Exam Neurological exam: Present: oriented X3. Absent: facial droop, speech deficit Internal Medicine: Result - Labs CBC & Chem 7: 08/28/16 03:24 08/28/16 03:24 - ABG Interpretation ABG results: PT/INR, D-dimer PT 17.5 Seconds (9.4-12.1) H 08/28/16 06:06 - VTE Documentation of Mechanical Device: Intermittent pneumatic compression device Consult Discharge Plan - Plan Additional Instructions: Follow-up with podiatry in 2-3 weeks Referrals: NO,PCP [Primary Care Provider] - (In 1-2 weeks) Prescriptions: OxyCODONE Immed Rel [Roxicodone 5 MG] 5 mg PO Q6HR PRN #14 tablet PRN Reason: Moderate Pain ClonazePAM [Klonopin] 1 mg PO BID #14 tablet Mirtazapine [Remeron] 15 mg PO HS #14 tablet - Attending Attestation This document has been at least partially created by [employer] recognition technology by Dr. Abdalla. Errors in grammar, wording or other phrases may exist. If errors are found after the documentation is signed, they will be addressed individually in the addendum section of this document when appropriate.
[2016-08-31] MEDS ORDERED: Bisacodyl 10 MG RECTAL SUPPOSITORY RC ONE (10:22)
[2016-08-31] MEDS: Acetaminophen 325 MG TABLET PO PRN (12:57)
[2016-08-31] MEDS: MOM Conc 10 ML UD.LIQ PO PRN (12:58)
[2016-08-31] MEDS: Mirtazapine 15 MG TABLET PO SCH (20:36)
[2016-09-01] MEDS: Acetaminophen 325 MG TABLET PO PRN (08:48)
[2016-09-01] MEDS: APIXABAN 5 MG TABLET PO SCH ×2 (08:49→20:00)
[2016-09-01] MEDS: Acyclovir 200 MG CAPSULE PO SCH (08:49)
[2016-09-01] MEDS: clonazePAM 1 MG TABLET PO SCH ×2 (08:49→20:00)
--- NOTE | 2016-09-01 12:50 | Internal Med Progress Note ---
Date of Encounter: 09/01/16 Time of Encounter: 08:35 - Assessment and plan (1) Ankle fracture Current Visit: Yes Status: Acute Assessment and plan: Conservative management. Follow-up with podiatry after discharge. Awaiting placement to skilled rehabilitation. Qualifiers: Encounter type: initial encounter Fracture type: closed Laterality: right Qualified Code(s): S82.891A - Other fracture of right lower leg, initial encounter for closed fracture (2) Ambulatory dysfunction Current Visit: Yes Status: Acute (3) Ankle sprain and strain Current Visit: Yes Status: Acute (4) Depression with anxiety Current Visit: No Status: Chronic Assessment and plan: Continue current medications including Remeron and Klonopin. (5) Glioblastoma Current Visit: No Status: Chronic (6) History of pulmonary embolus (PE) Current Visit: Yes Status: Chronic Assessment and plan: On anticoagulation with Eliquis (7) Constipation Current Visit: Yes Status: Resolved Assessment and plan: Continue Colace. Qualifiers: Constipation type: slow transit constipation Qualified Code(s): K59.01 - Slow transit constipation - Subjective Interval history: Patient is doing better today. Had a bowel movement with relief of constipation. No other acute issues today. Pain in his left foot is improving. - Constitutional Vitals: Temp Pulse Resp BP Pulse Ox 98.2 F 82 18 117/81 93 09/01/16 11:45 09/01/16 11:45 09/01/16 11:45 09/01/16 11:45 09/01/16 11:45 General appearance: Present: cooperative, A&O X 3, no acute distress, answers questions appropriately - Respiratory Respiratory exam: Present: CTAB. Absent: accessory muscle use, rales, rhonchi, wheezes - Cardiovascular Cardiovascular exam: Present: RRR, +S1, +S2. Absent: diastolic murmur, gallop, rubs, systolic murmur - Extremities Exam Extremities exam: Present: warm, radial pulses palpable and symetrical. Absent : calf tenderness, cyanotic, pedal edema Additional comments: Right foot in boot and left foot and ankle brace Internal Medicine: Result - Labs CBC & Chem 7: 08/28/16 03:24 08/28/16 03:24 - ABG Interpretation ABG results: PT/INR, D-dimer PT 17.5 Seconds (9.4-12.1) H 08/28/16 06:06 - VTE Documentation of Mechanical Device: Intermittent pneumatic compression device Consult Discharge Plan - Plan Additional Instructions: Follow-up with podiatry in 2-3 weeks Referrals: NO,PCP [Primary Care Provider] - (In 1-2 weeks) Prescriptions: OxyCODONE Immed Rel [Roxicodone 5 MG] 5 mg PO Q6HR PRN #14 tablet PRN Reason: Moderate Pain ClonazePAM [Klonopin] 1 mg PO BID #14 tablet Mirtazapine [Remeron] 15 mg PO HS #14 tablet - Attending Attestation This document has been at least partially created by [employer] recognition technology by Dr. Abdalla. Errors in grammar, wording or other phrases may exist. If errors are found after the documentation is signed, they will be addressed individually in the addendum section of this document when appropriate.
[2016-09-01] MEDS ORDERED: Ondansetron ODT 4 MG TAB.RAPDIS SL PRN (17:00)
[2016-09-01] MEDS: Mirtazapine 15 MG TABLET PO SCH (20:00)
[2016-09-02] MEDS: clonazePAM 1 MG TABLET PO SCH (07:42)
[2016-09-02] MEDS: Acyclovir 200 MG CAPSULE PO SCH (07:42)
[2016-09-02] MEDS: Sulfamethoxazole/Trimeth DS 1 EACH TABLET PO SCH (07:42)
[2016-09-02] MEDS: APIXABAN 5 MG TABLET PO SCH (07:42)
--- NOTE | 2016-09-02 10:05 | Internal Med Progress Note ---
Date of Encounter: 09/02/16 Time of Encounter: 08:00 - Assessment and plan (1) Ankle fracture Current Visit: Yes Status: Acute Assessment and plan: Doing well overall. Continue supportive care and physical therapy. Awaiting placement to skilled rehabilitation. Qualifiers: Encounter type: initial encounter Fracture type: closed Laterality: right Qualified Code(s): S82.891A - Other fracture of right lower leg, initial encounter for closed fracture (2) Ambulatory dysfunction Current Visit: Yes Status: Acute (3) Ankle sprain and strain Current Visit: Yes Status: Acute (4) Depression with anxiety Current Visit: No Status: Chronic (5) Glioblastoma Current Visit: No Status: Chronic (6) History of pulmonary embolus (PE) Current Visit: Yes Status: Chronic (7) Constipation Current Visit: Yes Status: Resolved Qualifiers: Constipation type: slow transit constipation Qualified Code(s): K59.01 - Slow transit constipation - Subjective Interval history: Patient is doing well. No new complaints at this time. Pain in both of his legs is improving. - Constitutional Vitals: Temp Pulse Resp BP Pulse Ox 97.8 F 82 17 113/78 93 09/02/16 07:30 09/02/16 07:30 09/02/16 07:30 09/02/16 07:30 09/02/16 07:30 General appearance: Present: cooperative, A&O X 3, no acute distress, answers questions appropriately - Respiratory Respiratory exam: Present: CTAB. Absent: accessory muscle use, rales, rhonchi, wheezes - Cardiovascular Cardiovascular exam: Present: RRR, +S1, +S2. Absent: diastolic murmur, gallop, rubs, systolic murmur - GI/Abdominal GI/Abdominal exam: Present: normal bowel sounds, soft, no peritoneal signs. Absent: distended, tenderness - Extremities Exam Extremities exam: Present: warm, radial pulses palpable and symetrical. Absent : calf tenderness, cyanotic, pedal edema Additional comments: Has cam boot in right leg and ankle brace on left with good movement at ankle - Neurological Exam Neurological exam: Present: CN II-XII intact, oriented X3, no focal deficits. Absent: facial droop, speech deficit Internal Medicine: Result - Labs CBC & Chem 7: 08/28/16 03:24 08/28/16 03:24 - ABG Interpretation ABG results: PT/INR, D-dimer PT 17.5 Seconds (9.4-12.1) H 08/28/16 06:06 - VTE Documentation of Mechanical Device: Intermittent pneumatic compression device Consult Discharge Plan - Plan Additional Instructions: Follow-up with podiatry in 2-3 weeks Referrals: NO,PCP [Primary Care Provider] - (In 1-2 weeks) Prescriptions: OxyCODONE Immed Rel [Roxicodone 5 MG] 5 mg PO Q6HR PRN #14 tablet PRN Reason: Moderate Pain ClonazePAM [Klonopin] 1 mg PO BID #14 tablet Mirtazapine [Remeron] 15 mg PO HS #14 tablet - Attending Attestation This document has been at least partially created by [employer] recognition technology by Dr. Abdalla. Errors in grammar, wording or other phrases may exist. If errors are found after the documentation is signed, they will be addressed individually in the addendum section of this document when appropriate.
[2016-09-02 15:21] VITALS: BP 116/81
== END 2016-09-02 16:45 ==
LOC: EMEROO 18:38 → 3NENU 18:38 → SUATTDRO 21:59 → 3NENU 22:32
PROVIDERS: ADMIT Internal Medicine; ATTEND Internal Medicine